=== PATIENT | male | born 1965 | race Caucasian/White ===

== ENCOUNTER → 2025-02-12 15:01 | Outpatient (REF) | payer OTHER, SELFPAY | LOC: HWRAD 15:01 | PROVIDERS: ATTENDING PHYSICIAN Otolaryngology; FAMILY PHYSICIAN Internal Medicine | DX: J32.8 Other chronic sinusitis (principal) | CPT/HCPCS: 70486 ==

== ENCOUNTER 2025-02-18 06:15 | Day surgery (SDC) | payer OTHER, SELFPAY | END 2025-02-18 09:18 | disposition home or self-care (01) | LOC: GI 06:15 | PROVIDERS: ATTENDING PHYSICIAN Specialist | DX: Z12.11 Encounter for screening for malignant neoplasm of colon (principal); K57.30 Diverticulosis of large intestine without perforation or abscess without bleeding; K22.89 Other specified disease of esophagus; K22.70 Barrett's esophagus without dysplasia; D12.3 Benign neoplasm of transverse colon; D12.5 Benign neoplasm of sigmoid colon; K21.00 Gastro-esophageal reflux disease with esophagitis, without bleeding; K62.1 Rectal polyp; Z86.0101 Personal history of adenomatous and serrated colon polyps | CPT/HCPCS: 45380; 43239; 88305 ==

== ENCOUNTER → 2025-04-07 11:55 | Outpatient (REF) | payer OTHER, SELFPAY | LOC: HWRAD 11:55 | PROVIDERS: FAMILY PHYSICIAN Internal Medicine | DX: Z13.6 Encounter for screening for cardiovascular disorders (principal) | CPT/HCPCS: 75571 ==

== ENCOUNTER → 2025-04-23 10:43 | Outpatient (REF) | payer OTHER, SELFPAY ==
--- NOTE | 2025-04-23 12:27 | CARDSERVLU ---
Echocardiogram with Lumason completed after protocol screening completed. Allergies verified.
Patent IV site: __Left hand___
IV site flushed with 0.9% NaCl pre and post administration.
Diluted bolus method utilized to enhance visualization of ventricular hewitt.
Total volume given: _6.0__ mL
Patient tolerated all procedures well without complications.
== END ==
LOC: RCS 10:43
PROVIDERS: FAMILY PHYSICIAN Internal Medicine
DX: I25.10 Atherosclerotic heart disease of native coronary artery without angina pectoris (principal); I25.84 Coronary atherosclerosis due to calcified coronary lesion
CPT/HCPCS: 93017; 93320; 93325; 93350; Q9950

== ENCOUNTER → 2025-05-25 06:36 | Outpatient (REF) | payer OTHER, SELFPAY | LOC: MRI 3T 06:36 | PROVIDERS: ATTENDING PHYSICIAN Specialist; FAMILY PHYSICIAN Internal Medicine | DX: M25.511 Pain in right shoulder (principal); M25.819 Other specified joint disorders, unspecified shoulder | CPT/HCPCS: 73221 ==

== ENCOUNTER → 2025-06-23 14:39 | Outpatient (REF) | payer OTHER, SELFPAY | LOC: HWRAD 14:39 | PROVIDERS: ATTENDING PHYSICIAN Internal Medicine | DX: R91.1 Solitary pulmonary nodule (principal) | CPT/HCPCS: 71250 ==

== ENCOUNTER 2025-06-27 06:20 | Day surgery (SDC) | payer OTHER, SELFPAY ==
[2025-06-18 09:54] LABS: Blood Urea Nitrogen 16 mg/dl (9-20); Calcium 8.8 mg/dl (8.4-10.2); Carbon Dioxide 29 mmol/L (22-30); Chloride 105 mmol/L (98-107); Glucose 89 mg/dl (70-99); Potassium 4.0 mmol/L (3.5-5.1); Sodium 139 mmol/L (135-145); eGFR > 60.00
[2025-06-18 13:51] VITALS: BMI 35.3
--- NOTE | 2025-06-18 17:32 | PTCARENOTE ---
Abnormal ECG (dated 05/29/25) reviewed and cleared by Dr. Lucero. No further orders at this time.
[2025-06-27] VITALS (11 sets, daily range): BP systolic 142–164; BP diastolic 80–105; BMI 35.3
[2025-06-27] MEDS: TYLENOL 1000 MG PO (08:02)
[2025-06-27] MEDS: NORMOSOL-R/PLASMALYTE-A 1000 IV (08:02)
[2025-06-27] MEDS: CELEBREX 200 MG PO (08:02)
[2025-06-27] MEDS: DILAUDID 0.25 MG IV (11:40)
== END 2025-06-27 15:08 | disposition home or self-care (01) ==
LOC: SDS 06:20
PROVIDERS: ATTENDING PHYSICIAN Specialist; FAMILY PHYSICIAN Physician Assistant; OTHER PHYSICIAN Internal Medicine Cardiovascular Disease
DX: M75.111 Incomplete rotator cuff tear or rupture of right shoulder, not specified as traumatic (principal); M75.41 Impingement syndrome of right shoulder
CPT/HCPCS: 29827; 29826; 80048; C1713; C1763